=== PATIENT | male | born 1950 | race Caucasian/White ===

== ENCOUNTER 2017-03-15 13:27 | Emergency (ER) | payer BC ==
--- NOTE | 2017-03-15 14:02 | UC ---
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 TRIED TO FIND HIS PULSE BUT COULD NOT FIND IT. CAME HERE FOR EVAL. DENIES CP, SOB, NAUSEA, SWEATS. HAS OCCASIONAL PALPITATIONS. DENIES ANY PREVIOUS CARDIAC HISTORY. RAKED LEAVES THIS MORNING. - History of Current Complaint Chief Complaint: UCCardiac Stated Complaint: HEART ISSUE Time Seen by Provider: 03/15/17 13:46 Hx Obtained From: Patient, Family/Sexual Assault Social Worker - Onset/Duration: Sudden Onset, Lasting Hours Timing: Constant Onset Severity: Moderate Current Severity: Moderate Pain Intensity: 0 Associated Signs & Symptoms: Positive: Palpitations. Negative: Chest Pain, Dizziness, Diaphoresis, Headache, Nausea, Recent Medication Changes, Syncope, SOB - Allergy/Home Medications Allergies/Adverse Reactions: Allergies Allergy/AdvReac Type Severity Reaction Status Date / Time No Known Allergies Allergy Verified 03/15/17 13:34 Home Medications: Home Medications Atorvastatin* [Lipitor 10 MG*] 03/15/17 [History] Bupropion XL* [Wellbutrin XL *] 300 mg PO DAILY 03/15/17 [History Confirmed 08/25] Clonazepam [Klonopin] 1 mg PO 03/15/17 [History] Dexmethylphenidate HCl [Focalin] 2.5 mg PO 03/15/17 [History] Lisinopril [Lisinopril 2.5 MG-] 2.5 mg PO DAILY 03/15/17 [History Confirmed 08/25] NK [No Home Medications Reported] 03/15/17 [History Confirmed 03/15/17] PMH/Surg Hx/FS Hx/Imm Hx Endocrine History: Diabetes, Dyslipidemia Cardiovascular History: Hypertension Psychological History: Anxiety, Depression - Surgical History Surgical History: None - Family History Known Family History: Positive: Cardiac Disease, Hypertension - Social History Alcohol Use: Weekly Substance Use Type: None Smoking Status (MU): Never Smoked Tobacco Review of Systems Constitutional: Negative Respiratory: Negative Cardiovascular: Palpitations Gastrointestinal: Negative Psychological: Anxious All Other Systems Reviewed And Are Negative: Yes Physical Exam Triage Information Reviewed: Yes Appearance: Well-Appearing, No Pain Distress, Well-Nourished Vital Signs: Initial Vital Signs Temp 97.4 F 03/15/17 13:31 Pulse 92 03/15/17 13:31 Resp 18 03/15/17 13:31 Pulse Ox 100 03/15/17 13:31 Vital Signs Reviewed: Yes Eyes: Positive: Conjunctiva Clear ENT: Positive: Hearing grossly normal Neck: Positive: Supple Respiratory Exam: Normal Cardiovascular: Positive: Tachycardia - IRREGULARLY IRREGULAR Abdomen Description: Positive: Soft Musculoskeletal: Positive: No Edema Neurological: Positive: Alert Psychological: Positive: Normal Response To Family, Age Appropriate Behavior Skin: Negative: rashes Diagnostics - EKG Cardiac Rate: Tachycardia Cardiac Rhythm: AFib: New - 151 BPM Course/Dx - Differential Dx - Multi-Symptom Provider Diagnoses: NEW ONSET AFIB - Physician Notifications Discussed Patient Care With: Harpreet Graham - TO [facility] ED BY AMBULANCE Time Discussed With Above Provider: 13:55 Instructed by Provider To: MD Will See In ED Discharge - Discharge Plan Condition: Stable Disposition: [facility]ANS [facility] OF CARE FAC Patient Education Materials: A-fib (Atrial Fibrillation) (ED) Referrals: Abhi Berry MD [Primary Care Provider] - If Needed
[2017-03-15 14:04] VITALS: BP 132/80
== END 2017-03-15 14:14 | disposition short-term general hospital (02) ==
LOC: UCEAST 13:27
DX: I48.91 Unspecified atrial fibrillation (principal); E11.9 Type 2 diabetes mellitus without complications; E78.5 Hyperlipidemia, unspecified; F41.9 Anxiety disorder, unspecified; F32.9 Major depressive disorder, single episode, unspecified
CPT/HCPCS: 93005; 99213; G0463

== ENCOUNTER 2017-03-15 14:30 | Inpatient (IN) | payer BC ==
[2017-03-15] MEDS ORDERED: Aspirin Low Dose CHEW TAB* 81 MG PO ONE (14:31)
[2017-03-15] MEDS ORDERED: Diltiazem IV* 5 MG/ML 5 ML VIAL (for loading dose/IV Push) (25 MG) IV SLOW PU ONE ×2 (14:34→15:06)
[2017-03-15 14:45] LABS: Hematocrit 43 % (42-52); Hemoglobin 14.8 g/dl (14.0-18.0); Mean Corpuscular HGB Conc 35 g/dl (31-36); Mean Corpuscular Hemoglobin 31 pg (27-31); Mean Corpuscular Volume 88 fL (80-94); Mean Platelet Volume 7 um3 (7.4-10.4); Red Blood Count 4.87 10^6/ul (4.0-5.4); Red Cell Distribution Width 14 % (10.5-15); White Blood Count 5.6 10^3/ul (3.5-10.8)
[2017-03-15 15:00] LABS: Albumin 4.4 g/dL (3.2-5.2); BUN/Creatinine Ratio 13.9 (8-20); Calcium 9.6 mg/dL (8.6-10.3); EGFR African American 82.1 (>60); EGFR Non-African American 63.8 (>60); Globulin 2.7 g/dL (2-4); Potassium 4.8 mmol/L (3.5-5.0); Total Bilirubin 0.3 mg/dL (0.2-1.0); Total Protein 7.1 g/dL (6.4-8.9)
[2017-03-15 15:02] LABS: Troponin I 0.01 ng/mL (<0.04)
--- NOTE | 2017-03-15 15:17 | RAD ---
HISTORY: Tachycardia COMPARISONS: None VIEWS: 1: frontal portable view of the chest at 2:50 PM FINDINGS: LINES AND TUBES: None. CARDIOMEDIASTINAL SILHOUETTE: The aorta is tortuous. The cardiomediastinal silhouette is otherwise normal for portable technique. PLEURA: The costophrenic angles are sharp. No pleural abnormalities are noted. LUNG PARENCHYMA: The lungs are clear. ABDOMEN: The upper abdomen is clear. There is no subphrenic gas. BONES AND SOFT TISSUES: No bone or soft tissue abnormalities are noted. IMPRESSION: NO ACTIVE CARDIOPULMONARY DISEASE.
[2017-03-15 15:18] LABS: TSH (Thyroid Stimulating Horm) 1.3 mcIU/mL (0.34-5.60)
[2017-03-15 15:20] LABS: Free T4 0.81 ng/dL (0.61-1.12)
[2017-03-15] MEDS ORDERED: Heparin DRIP 25,000 UNITS(*) 25,000 UNITS/500 ML BAG IV SCH (18:45)
[2017-03-15] MEDS ORDERED: Heparin VIAL(*) 5000 UNITS/ML VIAL (FIVE THOUSAND) IV SCH (19:00)
[2017-03-15] MEDS: Diltiazem DRIP* 100 MG/100 ML ADDV.BAG IVPB SCH (20:58)
[2017-03-15] MEDS: clonazePAM TAB(*) 0.5 MG PO SCH (21:02)
[2017-03-15 21:04] LABS: Hematocrit 42 % (42-52); Hemoglobin 14.7 g/dl (14.0-18.0); Mean Corpuscular HGB Conc 35 g/dl (31-36); Mean Corpuscular Hemoglobin 31 pg (27-31); Mean Corpuscular Volume 88 fL (80-94); Mean Platelet Volume 7 um3 (7.4-10.4); Red Cell Distribution Width 14 % (10.5-15); White Blood Count 6.4 10^3/ul (3.5-10.8)
[2017-03-15 21:19] LABS: Troponin I 0.01 ng/mL (<0.04)
[2017-03-15] MEDS: DEXMETHYLPHENIDATE HCL 10 MG PO SCH (21:52)
--- NOTE | 2017-03-15 22:50 | ED ---
Jak Cook Nilda scribed for Harpreet Graham MD on 03/15/17 at 1531 . HPI Cardiac - HPI Summary HPI Summary: This patient is a 67 year old M BIBA to [facility] accompanied by EMS with a chief complaint of sudden onset constant fluttering in chest that began at noon. Pt was sitting at his office at time of onset. Pt visited [facility] and was found to have rapid a-fib, and was sent to ED. Per EMS, fluttering subsided upon arrival to picker / packer pt from [facility], though elevated heart rate is still present. The patient rates the pain 1/10 in severity. Symptoms aggravated and alleviated by nothing. Patient reports tightness across chest without radiation. 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 Pt denies previous cardiac history. - History of Current Complaint Chief Complaint: EDDysrhythmPalp Stated Complaint: NEW ONSET OF AFIB Time Seen by Provider: 03/15/17 14:31 Hx Obtained From: Patient Onset/Duration: Started Hours Ago, Still Present Timing: Constant, Lasting Hours Current Severity: Mild Pain Intensity: 1 Pain Scale Used: 0-10 Numeric Chest Pain Location: Diffuse Chest Pain Radiates: No Character: Tightness Aggravating Factor(s): Nothing Alleviating Factor(s): Nothing Associated Signs and Symptoms: Positive: Other: - chest tightness, a-fib, "fluttering in chest" - Allergy/Home Medications Allergies/Adverse Reactions: Allergies Allergy/AdvReac Type Severity Reaction Status Date / Time No Known Allergies Allergy Verified 03/15/17 13:34 Home Medications: Home Medications Atorvastatin* [Lipitor*] 40 mg PO DAILY 03/15/17 [History Confirmed 03/15/17] Desvenlafaxine Succinate [Desvenlafaxine ER] 50 mg PO DAILY 03/15/17 [History Confirmed 03/15/17] Dexmethylphenidate HCl [Focalin] 10 mg PO BID 03/15/17 [History Confirmed ] Lisinopril TAB* [Prinivil TAB*] 5 mg PO DAILY 03/15/17 [History Confirmed ] buPROPion SR TAB* [Wellbutrin SR TAB*] 150 mg PO DAILY 03/15/17 [History Confirmed 03/15/17] clonazePAM TAB(*) [KlonoPIN TAB(*)] 0.5 mg PO BID 03/15/17 [History Confirmed ] PMH/Surg Hx/FS Hx/Imm Hx Endocrine/Hematology History: Reports: Hx Diabetes - pre diabetic Cardiovascular History: Reports: Hx Hypertension Infectious Disease History: Unable to Obtain/Confirm Infectious Disease History: Denies: Traveled Outside the [place] in Last 30 Days - Family History Known Family History: Positive: Cardiac Disease, Hypertension - Social History Occupation: Employed Full-time Alcohol Use: Weekly Substance Use Type: Reports: None Smoking Status (MU): Never Smoked Tobacco Review of Systems Negative: Fever, Chills Negative: Erythema Negative: Sore Throat Positive: Chest Pain, Other - fluttering in chest, A-fib Negative: Shortness Of Breath, Cough Negative: Abdominal Pain, Vomiting, Nausea Negative: dysuria, hematuria Negative: Myalgia, Edema Negative: Rash Neurological: Other - negative dizziness All Other Systems Reviewed And Are Negative: Yes Physical Exam - Summary Physical Exam Summary: Constitutional: Well-developed, Well-nourished, Alert. (-) Distressed Skin: Warm, Dry HENT: Normocephalic; Atraumatic Eyes: Conjunctiva normal Neck: Musculoskeletal ROM normal neck. (-) JVD, (-) Stridor, (-) Tracheal deviation Cardio: Rapid irregular pulse; Intact distal pulses; The pedal pulses are 2+ and symmetric. Radial pulses are 2+ and symmetric. (-) Murmur Pulmonary/Chest wall: Effort normal. (-) Respiratory distress, (-) Wheezes, (-) Rales Abd: Soft, (-) Tenderness, (-) Distension, (-) Guarding, (-) Rebound Musculoskeletal: (-) Edema Lymph: (-) Cervical adenopathy Neuro: Alert, Oriented x3 Psych: Mood and affect Normal Triage Information Reviewed: Yes Vital Signs On Initial Exam: Initial Vitals Temp Pulse Resp BP Pulse Ox 98.4 F 165 18 125/91 99 03/15/17 14:37 03/15/17 14:37 03/15/17 14:37 03/15/17 14:37 03/15/17 14:37 Vital Signs Reviewed: Yes Diagnostics - Vital Signs Vital Signs Temp Pulse Resp BP Pulse Ox 03/15/17 14:37 98.4 F 165 18 125/91 99 - Laboratory Lab Results: Lab Results 03/15/17 03/15/17 03/15/17 Range/Units 14:10 14:10 14:10 WBC 5.6 (3.5-10.8) 10^3/ul RBC 4.87 (4.0-5.4) 10^6/ul Hgb 14.8 (14.0-18.0) g/dl Hct 43 (42-52) % MCV 88 (80-94) fL MCH 31 (27-31) pg MCHC 35 (31-36) g/dl RDW 14 (10.5-15) % Plt Count 227 (150-450) 10^3/ul MPV 7 L (7.4-10.4) um3 Neut % (Auto) 54.3 (38-83) % Lymph % (Auto) 33.5 (25-47) % [place] % (Auto) 10.7 H (1-9) % Eos % (Auto) 0.6 (0-6) % Baso % (Auto) 0.9 (0-2) % Absolute Neuts (auto) 3.1 (1.5-7.7) 10^3/ul Absolute Lymphs (auto) 1.9 (1.0-4.8) 10^3/ul Absolute Monos (auto) 0.6 (0-0.8) 10^3/ul Absolute Eos (auto) 0 (0-0.6) 10^3/ul Absolute Basos (auto) 0.1 (0-0.2) 10^3/ul Absolute Nucleated RBC 0.01 10^3/ul Nucleated RBC % 0.2 Sodium 137 (133-145) mmol/L Potassium 4.8 (3.5-5.0) mmol/L Chloride 104 (101-111) mmol/L Carbon Dioxide 24 (22-32) mmol/L Anion Gap 9 (2-11) mmol/L BUN 16 (6-24) mg/dL Creatinine 1.15 (0.67-1.17) mg/dL Est GFR ( Amer) 82.1 (>60) Est GFR (Non-Af Amer) 63.8 (>60) BUN/Creatinine Ratio 13.9 (8-20) Glucose 120 H (70-100) mg/dL Lactic Acid 1.2 (0.5-2.0) mmol/L Calcium 9.6 (8.6-10.3) mg/dL Total Bilirubin 0.30 (0.2-1.0) mg/dL AST 24 (13-39) U/L ALT 27 (7-52) U/L Alkaline Phosphatase 100 (34-104) U/L Troponin I 0.01 (<0.04) ng/mL Total Protein 7.1 (6.4-8.9) g/dL Albumin 4.4 (3.2-5.2) g/dL Globulin 2.7 (2-4) g/dL Albumin/Globulin Ratio 1.6 (1-3) TSH 1.30 (0.34-5.60) mcIU/mL Free T4 Pending Result Diagrams: 03/15/17 20:50 03/15/17 14:10 Lab Statement: Any lab studies that have been ordered have been reviewed, and results considered in the medical decision making process. - Radiology CXR Radiology Interpretation Completed By: Radiologist - CXR, per radiologist, reveals no active cardiopulmonary disease. ED physician has reviewed this radiology report and agrees. - EKG 1433 EKG Rhythm: Atrial Fibrillation - 153 bpm EKG Interpretation: RVR, no STEMI Disposition - Course Assessment/Plan: This patient is a 67 year old M BIBA to [facility] accompanied by EMS with a chief complaint of sudden onset constant fluttering in chest that began at noon. Pt was sitting at his office at time of onset. Pt visited [facility] and was found to have rapid a-fib, and was sent to ED. Per EMS, symptoms subsided upon arrival to picker / packer pt from [facility], though elevated heart rate is still present. The patient rates the pain 1/10 in severity. Symptoms aggravated and alleviated by nothing. Patient reports tightness across chest without radiation. 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 Pt denies previous cardiac history. Pending labs, EKG, and CXR. An EKG reveals 153 bpm, A-fib, RVR, no STEMI. CXR , per radiologist, reveals no active cardiopulmonary disease. ED physician has reviewed this radiology report and agrees. [1640] Dr. Kilgore (Kitchen Worker) recommends hospital admission and agrees to cardioversion procedure in the morning. [1711] Dr. Palomo (infectious disease) has a full office and requests hospitalists to do admission. [1716] Dr. Lao (Hospitalist) accepts pt for admission. 60 mins CCT. In the ED course, the patient was given Diltiazem and Aspirin. Pt is stable and will be admitted with a diagnosis of rapid atrial fibrillation. Pt understands and is agreeable with this plan. - Diagnoses Provider Diagnoses: Rapid atrial fibrillation - Physician Notifications Discussed Care Of Patient With: Armando Kilgore - Cardiology Time Discussed With Above Provider: 16:40 Instructed by Provider To: Other - recommend hospital admission and agrees to cardioversion procedure in the morning. - Critical Care Time Critical Care Time: 30-74 min - 60 mins Discharge - Discharge Plan Condition: Stable Disposition: ADMITTED TO [facility] The documentation as recorded by the Jak herbert Nilda accurately reflects the service I personally performed and the decisions made by , Harpreet Graham MD.
--- NOTE | 2017-03-16 02:29 | HP ---
CC: Dr. Abhi Berry; Dr. Kumar * HISTORY AND PHYSICAL: DATE OF ADMISSION: 03/15/17 CHIEF COMPLAINT: "Fluttering in my neck." HISTORY OF PRESENT ILLNESS: The patient is a 67-year-old gentleman in his usual state of health until about 1 p.m. today when he started feeling a fluttering in his neck. He thought it might be due to the humidity in the air. He could not feel his pulse though, which worried him. He had no other symptoms. He had no chest pain and no shortness of breath. He was not lightheaded, he had no nausea or vomiting. He called his and asked her to bring him to urgent care where he was found to be in atrial fibrillation with a rapid ventricular response. He does note in the year 1999, he felt a throbbing in his throat after he exercised and he was evaluated by a line decorator, who said he had an extra heart beat. He said he was told he was perfectly normal, but he also wrote down that he was in atrial fibrillation. He is not sure how this came about. PAST MEDICAL HISTORY: He has a past medical history significant for a , for which he needs to take antibiotics prior to dental work. He is prediabetic , has depression, hypertension, hyperlipidemia. SOCIAL HISTORY: He does not smoke. He quit in 1982. Drinks wine daily. 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 He is with an 8-year-old from this marriage and a 34 and 32-year-old from prior relationship. His , Karmen, is his healthcare proxy. FAMILY HISTORY: Mom is alive at 93, has arrhythmia and prediabetic. Father at 80, had pancreatic cancer and an IL at 60. CURRENT MEDICATIONS: 1. Clonazepam 0.5 mg twice daily. 2. Focalin 10 mg twice daily. 3. Lisinopril 5 mg daily. 4. Wellbutrin SR 150 mg daily. 5. Desvenlafaxine ER 50 mg daily. 6. Atorvastatin 40 mg daily. REVIEW OF SYSTEMS: A 14-point review of systems was completed with the patient. All pertinent positives and negatives are in the history of present illness, otherwise it is negative. PHYSICAL EXAMINATION GENERAL: A pleasant gentleman, lying in bed, in no acute distress. VITAL SIGNS: Blood pressure 116/70, pulse ox 95%, respiratory rate 17 breaths per minute, heart rate 91 beats per minute, temperature is 98.4 degrees. HEENT: Normocephalic and atraumatic. Pupils are equal, round, and reactive to light. Moist mucous membranes. NECK: Supple. No JVD, bruits, palpable thyroid, or lymphadenopathy. CHEST: Clear to auscultation and percussion bilaterally. CARDIOVASCULAR: S1 and S2 appreciated. Irregularly irregular rhythm with an increased rate. ABDOMEN: Positive bowel sounds in all 4 quadrants. Soft, nontender, and nondistended. EXTREMITIES: No cyanosis, clubbing, or edema. +2 peripheral pulses bilaterally. NEUROLOGIC: Alert and oriented x3. Moves all extremities. SKIN: No rashes or abnormalities. DIAGNOSTIC STUDIES/LAB DATA: White count 5.6, hemoglobin 14.8, hematocrit 43, platelets 227. Sodium is 137, potassium 4.8, chloride 104, CO2 24, BUN 16, creatinine 1.15, glucose 120. Chest x-ray was interpreted by Radiology as no active cardiopulmonary disease. EKG shows atrial fibrillation with a rapid ventricular response. ASSESSMENT AND PLAN: 1. Atrial fibrillation with rapid ventricular response. Place the patient on Cardizem drip, place the patient on heparin drip. NPO after midnight. Discussed with Cardiology. Since he was symptomatic, he will likely go through [facility] cardioversion in the morning. 2. Depression. Stable. Continue current medications, we will hold p.o. medications in the a.m. 3. Hypertension. Blood pressure diastolic is little too high, but for now continue the current regimen and adjust medications accordingly. 4. Hyperlipidemia. Stable. Continue statin. 5. DVT prophylaxis: He is on a heparin drip. 6. The patient is a full code. TIME SPENT: Over 75 minutes was spent on this H and P, more than 40 minutes of which was spent in direct [id number] contact with the patient in evaluation, physical exam, counseling, and coordination of care. [id number]/[facility] #: [id number] ISIAH
[2017-03-16] MEDS: Diltiazem DRIP* 100 MG/100 ML ADDV.BAG IVPB SCH (07:46)
--- NOTE | 2017-03-16 08:46 | PN ---
Subjective - Subjective Reason for Note: Progress Note History: I have obtained his history from the patient and also from Dr. Vinson's admitting H and P. He usually drinks a couple of glasses of wine per night. He has also been under stress recently. He spontaneously went into rapid atrial fibrillation and has remained in that rhythm since, despite IV diltiazem. Risk factors: No history of CAD, rheumatic fever, hyperthyroidism, hypokalemia. He has T2D - well controlled (A1c 5.4%). Outpatient meds: atorvastatin 40 mg tablet TAKE 1 TABLET BY MOUTH AT BEDTIME buPROPion HCl SR 150 mg tablet,12 hr sustained-release TAKE ONE TABLET BY MOUTH TWICE A DAY clonazePAM 0.5 mg tablet 1 pill daily MDD 1 desvenlafaxine succinate ER 50 mg tablet,extended release 24 hr 1 pill daily dexmethylphenidate 10 mg tablet dexmethylphenidate ER 10 mg capsule,extended release [id number] 1 pill twice daily ibuprofen 800 mg tablet lisinopril 5 mg tablet TAKE ONE TABLET BY MOUTH ONCE DAILY metaxalone 800 mg tablet as needed tadalafil 5 mg tablet as needed Some medications listed in Document: #[id number] could not be added to this Active Problems: Active Problems Atrial fibrillation (Acute) I48.91 ADHD (Chronic) Anxiety (Chronic) F41.9 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) E11.9 Essential hypertension (Chronic) I10 Hypercholesteremia (Chronic) E78.00 Current Medications: Current Medications Atorvastatin Calcium (Lipitor*) 40 mg PO DAILY GISELA Bupropion HCl (Wellbutrin Sr Tab*) 150 mg PO DAILY GISELA Clonazepam (Klonopin Tab(*)) 0.5 mg PO BID GISELA Last Admin: 03/15/17 21:02 Dose: 0.5 mg Desvenlafaxine Succinate (Pristiq (Nf)) 50 mg PO DAILY GISELA Heparin Sodium (Porcine) (Heparin Vial(*)) 0 units IV .PER PROTOCOL GISELA PRN Reason: Protocol Last Admin: 03/16/17 06:37 Dose: 5,000 units Heparin Sodium/Dextrose (Heparin Drip 25,000 Units(*)) 25,000 units in 500 mls @ 0 mls/hr IV .NO INITIAL BOLUS GISELA; As Directed PRN Reason: Protocol Last Admin: 03/15/17 19:05 Dose: 26 mls/hr Diltiazem HCl (Cardizem Iv Advan*) 100 mg in 100 mls @ 10 mls/hr IVPB .PER PARAMETERS [facility] PRN Reason: 10 MG/HR Last Admin: 03/16/17 07:46 Dose: 10 mls/hr Lisinopril (Prinivil Tab*) 5 mg PO DAILY [facility] Non-Formulary Medication (Dexmethylphenidate Hcl [Focalin]) 10 mg PO BID [facility] Last Admin: 03/15/17 21:52 Dose: Not Given - Review of Systems Constitutional Symptoms: No: Fatigue, Fever, Night Sweats Pulmonary: Negative: Respiratory Distress, Shortness of Breath Cardiology: Positive: Palpitations Negative: Chest Pain, Swelling of Ankles Gastroenterology: Negative: Abdominal Pain, Nausea, Vomiting, Change in Bowel Habits Genital - Urinary: Negative: Dysuria Home Medications: Home Medications Medication Instructions Recorded Confirmed Type Atorvastatin* [Lipitor*] 40 mg PO DAILY 03/15/17 03/15/17 History Desvenlafaxine Succinate 50 mg PO DAILY 03/15/17 03/15/17 History [Desvenlafaxine ER] Dexmethylphenidate HCl [Focalin] 10 mg PO BID 03/15/17 03/15/17 History Lisinopril TAB* [Prinivil TAB*] 5 mg PO DAILY 03/15/17 03/15/17 History buPROPion SR TAB* [Wellbutrin SR 150 mg PO DAILY 03/15/17 03/15/17 History TAB*] clonazePAM TAB(*) [KlonoPIN TAB(*)] 0.5 mg PO BID 03/15/17 03/15/17 History Allergies: Allergies Allergy/AdvReac Type Severity Reaction Status Date / Time No Known Allergies Allergy Verified 03/15/17 13:34 Objective - Vital Signs Vital Signs: Vital Signs 03/15/17 03/15/17 03/15/17 19:00 19:30 19:58 Temperature 97.6 F Pulse Rate 60 113 76 Respiratory 15 12 12 Rate Blood Pressure 128/86 110/84 (mmHg) O2 Sat by Pulse 96 97 93 Oximetry 03/15/17 03/15/17 03/15/17 20:00 20:30 21:00 Temperature 97.6 F Pulse Rate 98 83 91 Respiratory 14 17 13 Rate Blood Pressure 126/86 138/125 107/83 (mmHg) O2 Sat by Pulse 94 97 98 Oximetry 03/15/17 03/15/17 03/15/17 21:28 21:29 21:31 Temperature Pulse Rate 90 Respiratory 14 14 16 Rate Blood Pressure 111/79 (mmHg) O2 Sat by Pulse 99 Oximetry 03/15/17 03/15/17 03/15/17 22:00 22:30 22:57 Temperature Pulse Rate 85 88 Respiratory 34 20 14 Rate Blood Pressure 140/90 136/85 (mmHg) O2 Sat by Pulse 96 97 Oximetry 03/15/17 03/15/17 03/15/17 23:00 23:30 23:38 Temperature 98.0 F Pulse Rate 74 86 Respiratory 11 32 Rate Blood Pressure 129/87 127/87 (mmHg) O2 Sat by Pulse 96 97 Oximetry 03/16/17 03/16/17 03/16/17 00:00 00:06 00:30 Temperature Pulse Rate 81 93 74 Respiratory 21 17 19 Rate Blood Pressure 119/88 114/77 (mmHg) O2 Sat by Pulse 97 97 97 Oximetry 03/16/17 03/16/17 03/16/17 01:00 01:03 01:30 Temperature Pulse Rate 63 89 Respiratory 19 15 Rate Blood Pressure 112/75 110/60 114/81 (mmHg) O2 Sat by Pulse 97 95 Oximetry 03/16/17 03/16/17 03/16/17 01:44 01:46 01:51 Temperature Pulse Rate 72 74 Respiratory 13 20 20 Rate Blood Pressure (mmHg) O2 Sat by Pulse 99 99 Oximetry 03/16/17 03/16/17 03/16/17 02:00 02:30 03:00 Temperature Pulse Rate 69 73 75 Respiratory 6 16 15 Rate Blood Pressure 112/72 115/77 106/76 (mmHg) O2 Sat by Pulse 98 93 94 Oximetry 03/16/17 03/16/17 03/16/17 03:11 03:12 03:30 Temperature Pulse Rate 72 73 Respiratory 15 12 15 Rate Blood Pressure 110/77 (mmHg) O2 Sat by Pulse 93 96 Oximetry 03/16/17 03/16/17 03/16/17 03:53 04:00 04:30 Temperature 98.2 F Pulse Rate 72 80 Respiratory 14 16 Rate Blood Pressure 111/71 99/76 (mmHg) O2 Sat by Pulse 96 97 Oximetry 03/16/17 03/16/17 03/16/17 05:00 05:30 05:52 Temperature Pulse Rate 68 78 81 Respiratory 21 15 13 Rate Blood Pressure 111/77 109/76 (mmHg) O2 Sat by Pulse 96 96 98 Oximetry 03/16/17 03/16/17 03/16/17 05:53 06:01 06:30 Temperature Pulse Rate 69 75 Respiratory 20 20 10 Rate Blood Pressure 102/73 (mmHg) O2 Sat by Pulse 96 97 Oximetry 03/16/17 03/16/17 03/16/17 06:53 07:00 07:01 Temperature Pulse Rate 72 80 76 Respiratory 15 14 16 Rate Blood Pressure 109/82 (mmHg) O2 Sat by Pulse 98 97 97 Oximetry 03/16/17 03/16/17 03/16/17 07:30 08:00 08:01 Temperature 97.8 F Pulse Rate 80 72 78 Respiratory 15 14 14 Rate Blood Pressure 130/80 107/76 (mmHg) O2 Sat by Pulse 98 97 97 Oximetry 03/16/17 08:13 Temperature Pulse Rate 89 Respiratory 15 Rate Blood Pressure (mmHg) O2 Sat by Pulse 98 Oximetry - Intake and Output Intake and Output: Intake & Output 03/13/17 03/14/17 03/15/17 03/16/17 11:59 11:59 11:59 11:59 Intake Total 485 Output Total 950 Balance -465 Weight 241 lb 10.026 oz Intake: Medicated IV 81 GEN - Diltiazem/Cardizem 81 Heparin 44 Oral 360 Output: Urine 950 ADLs: Meal Record Start: 03/15/17 19: 30 Freq: 09,13,18 Status: Active Protocol: Created 03/15/17 19:30 System (Rec: 03/15/17 19:30 System [id number]) Intake and Output Start: 03/15/17 14: 43 Freq: Status: Active Protocol: Created 03/15/17 14:43 System (Rec: 03/15/17 14:43 System [id number]) Intake and Output Start: 03/15/17 19: 30 Freq: 06,14,22 Status: Active Protocol: Created 03/15/17 19:30 System (Rec: 03/15/17 19:30 System [id number]) Document 03/15/17 21:30 [id number] (Rec: 03/15/17 21:30 [id number]) Document 03/16/17 05:55 [id number] (Rec: 03/16/17 05:55 [id number] [id number]) Document 03/16/17 08:20 (Rec: 03/16/17 08:20 [id number]) - Physical Exam General: No Cyanosis, No Anemia, No Jaundice, No Clubbing Skin: Normal: Rash Endocrine: Yes Central Obesity, No Acromegaly, No Flushing, No Acanthosis nigricans, No Violaceious striae, No Raj Syndrome, No Buccal pigmenatation, No Boswell Crease Pigmentation Lungs and Chest: Yes: Chest Expansion Full, Chest Expansion Symetrica, Percussion Note Resonant, Vessicular Breath Sounds. No: Crackles, Wheezes Heart Rate and Rhythm: Irregular Additional Cardiovascular: Yes: Normal Heart Sounds. No: Heart Murmur, Pedal Edema Abdominal Exam: Yes: Soft, Bowel Sounds Present. No: Distention, Abdominal Mass , Abdominal Tenderness Results - Results Lab Results: Laboratory Results - last 24 hr 03/15/17 03/15/17 03/15/17 20:50 20:50 20:50 WBC 6.4 RBC 4.80 Hgb 14.7 Hct 42 MCV 88 MCH 31 MCHC 35 RDW 14 Plt Count 227 MPV 7 L Neut % (Auto) 61.8 Lymph % (Auto) 27.8 Stafford % (Auto) 9.5 H Eos % (Auto) 0.6 Baso % (Auto) 0.3 Absolute Neuts (auto) 4.0 Absolute Lymphs (auto) 1.8 Absolute Monos (auto) 0.6 Absolute Eos (auto) 0 Absolute Basos (auto) 0 Absolute Nucleated RBC 0.01 Nucleated RBC % 0.1 APTT 41.4 H BUN 14 Troponin I 0.01 03/16/17 05:10 WBC RBC Hgb Hct MCV MCH MCHC RDW Plt Count MPV Neut % (Auto) Lymph % (Auto) Stafford % (Auto) Eos % (Auto) Baso % (Auto) Absolute Neuts (auto) Absolute Lymphs (auto) Absolute Monos (auto) Absolute Eos (auto) Absolute Basos (auto) Absolute Nucleated RBC Nucleated RBC % APTT 47.6 H BUN Troponin I Radiology Results: Patient Name: OLGA VALENTINO Medical Record#: [id number] Ordering Physician: Harpreet Graham MD Acct.#: [id number] : 1950 Age: 67 Sex: M Location: EMERGENCY DEPARTMENT Exam Date: 03/15/17 143 ADM Status: PRE ER Order Information: CHEST AP PORTABLE Accession Number: [id number] CPT: 52798 HISTORY: Tachycardia COMPARISONS: None VIEWS: 1: frontal portable view of the chest at 2:50 PM FINDINGS: LINES AND TUBES: None. CARDIOMEDIASTINAL SILHOUETTE: The aorta is tortuous. The cardiomediastinal silhouette is otherwise normal for portable technique. PLEURA: The costophrenic angles are sharp. No pleural abnormalities are noted. LUNG PARENCHYMA: The lungs are clear. ABDOMEN: The upper abdomen is clear. There is no subphrenic gas. BONES AND SOFT TISSUES: No bone or soft tissue abnormalities are noted. IMPRESSION: NO ACTIVE CARDIOPULMONARY DISEASE. <Electronically signed by Sean Sanabria MD in OV> 03/15/17 151 Dictated By: Sean Sanabria MD Dictated Date/Time: 03/15/171513 Transcribed Date/Time: 03/15/17 151 Copy to: CC:Abhi Berry MD; Harpreet Graham MD Imaging - [facility] [address] [place] [address] ph ([phone]) ph ([phone]) ph [phone]) EKG Report: RAte 153 Atrial fib. QTc 5032 QRS 106 axis 5 Assessment - Problem List Assessment: Patient Problems Atrial fibrillation (Acute) ADHD (Chronic) Anxiety (Chronic) 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) Essential hypertension (Chronic) Hypercholesteremia (Chronic) Plan: Atrial fibrillation (Acute) This is the first episode of atrial fibrillation for this patient. He did not spontaneously convert and responded to diltiazem for rate control. He is due for DC cardioversion today. His main risk factors are caffeine, daily alcohol and stress. I will speak with cardiology to decide upon whether he can be discharged after cardioversion on anticoagulation. The main question is whether cardiology will want a stress test to rule out occult ischemia prior to discharge. ADHD (Chronic) ongoing Anxiety (Chronic) This is chronic and he is under stress at present 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) tight control with diet/exercise Essential hypertension (Chronic) controlled - treated with lisinopril Hypercholesteremia (Chronic) ongoing - treated with atorvastatin I discussed his case in detail with the patient and his . I covered the following topics * The nature of atrial fibrillation * complications * Risk factors * Anticoagulation * DC conversion * Need for CAD risk stratification * Alcohol/caffeine/stress * possibility of paroxysmal atrial fibrillation - its management with medication /EPS * answered questions. I spoke with Dr. Kumar who is managing his case for cardiology - may require inpatient follow up for CAD risk stratification
[2017-03-16] MEDS ORDERED: Lisinopril TAB* 5 MG PO SCH ×2 (09:00→21:00)
[2017-03-16] MEDS ORDERED: Atorvastatin* 40 MG TAB PO SCH ×2 (09:00→21:00)
[2017-03-16] MEDS ORDERED: Flumazenil* 0.1 MG/ML 5 ML MDV ONE (09:30)
[2017-03-16] MEDS ORDERED: Naloxone* 0.4 MG/ML 1 ML VIAL ONE (09:30)
[2017-03-16] MEDS ORDERED: fentaNYL* 50 MCG/ML 2 ML VIAL (100 MCG VIAL) ONE ×2 (09:30→10:49)
[2017-03-16] MEDS ORDERED: Lidocaine 2% VISCOUS* 15 ML UDC ONE (09:30)
[2017-03-16] MEDS ORDERED: Midazolam* 1 MG/ML 10 ML VIAL (10 MG) ONE (09:31)
[2017-03-16] MEDS ORDERED: Atropine SYRINGE* 0.1 MG/ML 10 ML SYRINGE (1 MG) ONE (12:19)
--- NOTE | 2017-03-16 12:35 | CARD ---
CC: Abhi Berry MD; Ta Kumar MD; Dr. Vinson * DIRECT CURRENT CARDIOVERSION NOTE: DATE OF PROCEDURE: 03/16/17 - ROOM #ICU-05 PROCEDURE: Direct current cardioversion. HISTORY: The patient is a 67-year-old male patient who was hospitalized to the intensive care unit with rapid symptomatic atrial fibrillation. Transesophageal echocardiography was further requested, guided cardioversion if feasible. He was started on heparin IV for anticoagulation. PROCEDURE IN DETAIL: After informed written consent had been obtained and with continuous blood pressure, pulse oximetry and heart rate monitoring, a transesophageal echocardiography was further performed and documented. The patient had normal left ventricular systolic function. No evidence of clots or smoke in the left atrium or in the left atrial appendage. Please refer to full report as per transesophageal echocardiography. After the transesophageal echocardiography, direct cardioversion was further followed. Initially, the patient received a total dose of Versed 8 mg during the LACIE and 100 mcg fentanyl IV and 8 mg of Versed IV and additional 2 mg of Versed IV was used before the direct current cardioversion. Synchronized 150 joules were delivered once and successfully converted the patient to normal sinus rhythm. There were no complications and the patient tolerated the procedure very well. An EKG was obtained and confirmed the patient to be in normal sinus rhythm with a heart rate of 70 beats per minute, blood pressure 120/70. CONCLUSION: Successful direct current cardioversion for atrial fibrillation. The patient in normal sinus rhythm. There were no complications. [id number]/CPS #: [id number] MTDD
--- NOTE | 2017-03-16 13:09 | CONS ---
CC: Dr. Abhi Berry; Dr. Kumar; Hospitalist service * CARDIOLOGY CONSULT: DATE OF CONSULT: 03/16/17 REASON FOR CONSULT: I was asked by Dr. Vinson from the hospitalist service to see this patient. HISTORY OF PRESENT ILLNESS: The patient is a 67-year-old male patient who follows with Dr. Abhi Berry as his primary care physician, with history of systemic arterial hypertension, diabetes mellitus type 2, hyperlipidemia, who presented to [facility] initially with tachycardia and a fluttering in his chest while he was at work, then transferred to [facility]. In the hospital here, he was found to be in atrial fibrillation. He was hospitalized to the intensive care unit and started on IV Cardizem drip. He remained in atrial fibrillation. He gives no symptoms of chest pain, no shortness of breath , no orthopnea, no PND. No dizziness, no syncope. No fever, no chills. No skin rash. No tremors. No hematochezia. No nausea, no vomiting, no abdominal pain. No syncope. No history of myocardial infarction. No history of coronary artery disease. No history of congestive heart failure. I was asked to see him from cardiology standpoint for further management for his atrial fibrillation, it was presumptive new onset, for LACIE-guided cardioversion if he remains in atrial fibrillation, which he is. PAST MEDICAL HISTORY: Includes history of systemic arterial hypertension, history of diabetes mellitus, hyperlipidemia, and depression. MEDICATIONS: His medications as an outpatient include: 1. Lipitor 40 mg daily. 2. Wellbutrin 150 mg daily. 3. Lisinopril 5 mg daily. 4. Clonazepam 0.5 mg twice daily. His medications as an inpatient include: 1. Lipitor 40 mg daily. 2. Wellbutrin 150 mg daily. 3. Cardizem IV 10 mL per hour. 4. Heparin adjusted to his PTT. 5. Lisinopril 5 mg daily. FAMILY HISTORY: There are some issues with family history of coronary artery disease, although details are not immediately available. SOCIAL HISTORY: No history of smoking. He drinks alcohol significantly, at least moderate according to him. He has no history of illicit drug use. He drinks caffeine also moderately. REVIEW OF SYSTEMS: Review of all other systems essentially is negative. PHYSICAL EXAMINATION: On exam, he is awake, alert, and oriented. He is not in acute distress. Vitals: Blood pressure 110/76, pulse 100, he is in atrial fibrillation. He is afebrile, respiratory rate is 15. Head and Neck Exam: Normocephalic, atraumatic head. Ears, nose, and throat essentially benign. Neck: Supple. JVP is not elevated. No carotid bruits. No masses in the neck is appreciated. Chest: Clear to auscultation. No rales, no wheezes, no added sounds appreciated. Heart: Irregularly irregular, S1 and S2. No added sounds. No gallops, no rubs. Abdomen: Benign, soft, positive bowel sounds. Extremities: No edema, no cyanosis, and no clubbing. Skin exam is normal. Psych: Normal affect and mood. ARRT TECHNOLOGIST: No focal deficits appreciated. DIAGNOSTIC STUDIES/LAB DATA: His labs are as follows: White blood cells 6.4, hemoglobin 14.7, hematocrit 42, platelets 227. Coagulation: PTT 47.6. Sodium 137, potassium 4.8, chloride 104, BUN 16, creatinine 1.15. LFTs are normal. Troponins 0.1 x3. TSH 1.30, T4 of 0.81. His EKG yesterday showed him to be in atrial fibrillation, heart rate is 153, nonspecific ST-T changes appreciated. IMPRESSION: The patient is a 67-year-old male patient with: 1. Presentation with symptomatic rapid atrial fibrillation, presumptive new onset. 2. Systemic arterial hypertension. 3. Hyperlipidemia. 4. Diabetes mellitus type 2, diet controlled. 5. Abnormal EKG as described. 6. History of at least moderate alcohol drinking and caffeinated drinks. 7. Family history of coronary artery disease, although not premature. PLAN: The plan at the present time is continue IV fluid and IV Cardizem. I agree with anticoagulation. He does have CHADS-VASc score system of at least 2 , at 67, hypertension, diabetes. We will proceed with a transesophageal echocardiography- guided cardioversion if that is feasible. I discussed this with the patient and his family. I answered all their concerns and questions up to their satisfaction. They are amendable to the plan. As I discussed him with Dr. Abhi Berry via phone today, he needs a risk stratification and we will schedule an inpatient nuclear Myoview stress test as well for him. [id number]/[facility] #: [id number] [facility] CENTERFlorence
--- NOTE | 2017-03-16 13:49 | TEE ---
Patient: OLGA VALENTINO [facility] Rec#: [id number] : 1950 Date: 03/16/2017 Age: 67y Height: 186.69 cm / 73.5 in Weight: 113.4 kg / 249.9 lbs Sex: M BSA: 2.38 Room#: [facility] Type: Inpatient Referring: Yg Vinson MD Performing: Ta Kumar MD Reading: Ta Kumar MD [employer] Internship: Nona Mallory RDCS Nurse: Issac Barrios RN CC: Abhi Berry MD Transesophageal Echocardiogram Indication: A-fib BP: 107/76 HR: 112 Rhythm: A-Fib Findings History: HTN, HLD, YAMILET, ETOH use, depression. Technical Comments: The study quality is good. Left Ventricle: The left ventricular chamber size is normal. Global left ventricular wall motion and contractility are within normal limits. There is normal left ventricular systolic function. The estimated ejection fraction is 55-60%. The assessment of diastolic function is non-diagnostic. Left Atrium: The left atrium is mildly dilated. The left atrial appendage velocity is normal. No thrombus is visualized within the left atrium. There is no thrombus visualized in the left atrial appendage. Right Ventricle: The right ventricular cavity size is normal. The right ventricular global systolic function is normal. Right Atrium: The right atrial cavity size is normal. Interatrial septum appears intact without evidence of shunting. The bubble study is negative. A patent foramen ovale is not demonstrated with color Doppler and agitated contrast. Aortic Valve: The aortic valve is trileaflet. The aortic valve leaflets are mildly thickened. There is a trace of aortic regurgitation. There is no evidence of aortic stenosis. Mitral Valve: The mitral valve leaflets are mildly thickened. There is mild mitral regurgitation. There are multiple regurgitant jets. There is no evidence of mitral stenosis. Tricuspid Valve: The tricuspid valve structure is not well visualized. There is trace tricuspid regurgitation. There is no tricuspid stenosis. Pulmonic Valve: The pulmonic valve appears normal. There is a trace pulmonic regurgitation. There is no pulmonic stenosis. Pericardium: There is no significant pericardial effusion. Aorta: There is mild dilatation of the ascending aorta. There is moderate dilatation of the aortic root. There is plaque visualized in the transverse aorta. There is mild atherosclerotic plaque in the visualized segments of the aorta. There is plaque visualized in the descending aorta. Pulmonary Artery: The main pulmonary artery appears normal. Venous: The bicaval view was obtained and appears normal. The pulmonary veins appear normal in size. 2 of 4 visualized. The flow pattern of the pulmonary veins appear normal. LACIE Procedures: All standard views were attempted within the limitations of patient tolerance and safety. History and physical as well as labs were reviewed. The patient was in a fasting state. Risks and benefits of the procedure, including alternatives, were discussed and written informed consent was obtained. The patient and/or their health care bottling equipment sales representative expressed understanding of the procedure, risks and benefits. Baseline and continuous monitoring of blood pressure, heart rate, pulse oximetry and heart rhythm was performed throughout the procedure. The appropriate time-out procedure was performed as per [facility] protocol. The patient was placed in the left lateral decubitus position. The patient's posterior pharynx was anesthetized with 20ml of 2% viscous lidocaine. The patient received IV Midazolam with a total dose of 8 mg. The patient received IV Fentanyl with a total dose of 100 mcg. An oral bite block was inserted for protection of oral dentition. The multiplane transesophageal echocardiogram probe was inserted through the posterior oropharynx and advanced into the esophagus without difficulty. Multiple 2D images were obtained of the heart and its related structures. Color flow Doppler was used for evaluation. Spectral Doppler was also used. The atrial septum was interrogated with color flow Doppler. At the conclusion of the procedure the probe was removed with continuous suction without complications. The patient tolerated the procedure with no apparent complications. Contrast: Normal saline was used as contrast for the bubble study. Image 31. Intravenous contrast was used to help determine presence of intracardiac shunting. Conclusions Global left ventricular wall motion and contractility are within normal limits. The estimated ejection fraction is 55-60%. The assessment of diastolic function is non-diagnostic. The left atrium is mildly dilated. No thrombus is visualized within the left atrium. There is no thrombus visualized in the left atrial appendage. Interatrial septum appears intact without evidence of shunting. There is a trace of aortic regurgitation. There is mild mitral regurgitation. There are multiple regurgitant jets. There is trace tricuspid regurgitation. There is a trace pulmonic regurgitation. There is plaque visualized in the transverse aorta. There is mild atherosclerotic plaque in the visualized segments of the aorta. Measurements Name Value Normal Range Aortic Annulus 2.2 cm (1.4 - 2.6) Ao root diameter (2D) 4.2 cm (2.1 - 3.5) Ascending Ao 3.5 cm (2.1 - 3.4) Name Value Normal Range MV E-wave Vmax 0.91 m/sec - MV deceleration time 156.7 msec -
[2017-03-16] MEDS: Diltiazem TAB* 30 MG PO SCH ×2 (14:11→20:53)
[2017-03-16] MEDS: DEXMETHYLPHENIDATE HCL 10 MG PO SCH ×2 (15:07→20:53)
[2017-03-16] MEDS: PTO:Desvenlafaxine (NF) 50 MG TAB PO SCH (15:07)
[2017-03-16] MEDS ORDERED: Rivaroxaban TAB(*) 20 MG TAB PO SCH (17:00)
[2017-03-16] MEDS: buPROPion SR TAB.SR* 150 MG PO SCH (17:31)
[2017-03-16] MEDS: clonazePAM TAB(*) 0.5 MG PO SCH ×2 (17:31→20:51)
[2017-03-16 18:45] LABS: Hematocrit 40 % (42-52); Hemoglobin 13.6 g/dl (14.0-18.0); Mean Corpuscular HGB Conc 34 g/dl (31-36); Mean Corpuscular Hemoglobin 30 pg (27-31); Mean Corpuscular Volume 89 fL (80-94); Mean Platelet Volume 7 um3 (7.4-10.4); Red Blood Count 4.51 10^6/ul (4.0-5.4); Red Cell Distribution Width 13 % (10.5-15); White Blood Count 5.5 10^3/ul (3.5-10.8)
[2017-03-17 06:40] LABS: Hematocrit 41 % (42-52); Hemoglobin 13.9 g/dl (14.0-18.0); Mean Corpuscular HGB Conc 34 g/dl (31-36); Mean Corpuscular Hemoglobin 30 pg (27-31); Mean Corpuscular Volume 89 fL (80-94); Mean Platelet Volume 7 um3 (7.4-10.4); Red Blood Count 4.62 10^6/ul (4.0-5.4); Red Cell Distribution Width 14 % (10.5-15); White Blood Count 4.9 10^3/ul (3.5-10.8)
[2017-03-17 06:58] LABS: BUN/Creatinine Ratio 14.6 (8-20); EGFR African American 93.2 (>60); EGFR Non-African American 72.5 (>60)
--- NOTE | 2017-03-17 07:27 | PN ---
Subjective - Subjective Reason for Note: Discharge Note History: Discharge summary: I reviewed Dr. Kumar's notes from yesterday. He was successfully cardioverted without incident. This morning he is feeling well and has remained in sinus rhythm. He is going to undergo risk stratification using a NM stress test today to rule out occult coronary artery disease. He has no chest pain, dyspnea, palpitations or edema. 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) E11.9 Essential hypertension (Chronic) I10 Hypercholesteremia (Chronic) E78.00 Current Medications: Current Medications Atorvastatin Calcium (Lipitor*) 40 mg PO 2100 [facility] Last Admin: 03/16/17 20:51 Dose: 40 mg Bupropion HCl (Wellbutrin Sr Tab*) 150 mg PO DAILY [facility] Last Admin: 03/16/17 17:31 Dose: Not Given Clonazepam (Klonopin Tab(*)) 0.5 mg PO BID [facility] Last Admin: 03/16/17 20:51 Dose: 0.5 mg Desvenlafaxine Succinate (Pristiq (Nf)) 50 mg PO DAILY [facility] Last Admin: 03/16/17 15:07 Dose: 50 mg Diltiazem HCl (Cardizem Tab*) 30 mg PO BID [facility] Last Admin: 03/16/17 20:53 Dose: 30 mg Lisinopril (Prinivil Tab*) 5 mg PO 2100 [facility] Last Admin: 03/16/17 20:53 Dose: 5 mg Non-Formulary Medication (Dexmethylphenidate Hcl [Focalin]) 10 mg PO BID [facility] Last Admin: 03/16/17 20:53 Dose: Not Given Rivaroxaban (Xarelto (*)) 20 mg PO 1700 [facility] Last Admin: 03/16/17 18:29 Dose: 20 mg Home Medications: Home Medications Medication Instructions Recorded Confirmed Type Atorvastatin* [Lipitor*] 40 mg PO DAILY 03/15/17 03/15/17 History Desvenlafaxine Succinate 50 mg PO DAILY 03/15/17 03/15/17 History [Desvenlafaxine ER] Dexmethylphenidate HCl [Focalin] 10 mg PO BID 03/15/17 03/15/17 History Lisinopril TAB* [Prinivil TAB*] 5 mg PO DAILY 03/15/17 03/15/17 History buPROPion SR TAB* [Wellbutrin SR 150 mg PO DAILY 03/15/17 03/15/17 History TAB*] clonazePAM TAB(*) [KlonoPIN TAB(*)] 0.5 mg PO BID 03/15/17 03/15/17 History Allergies: Allergies Allergy/AdvReac Type Severity Reaction Status Date / Time No Known Allergies Allergy Verified 03/15/17 13:34 Objective - Vital Signs Vital Signs: Vital Signs 03/16/17 03/16/17 03/16/17 07:30 08:00 08:01 Temperature 97.8 F Pulse Rate 80 72 78 Respiratory 15 14 14 Rate Blood Pressure 130/80 107/76 (mmHg) O2 Sat by Pulse 98 97 97 Oximetry 03/16/17 03/16/17 03/16/17 08:13 08:30 09:00 Temperature Pulse Rate 89 89 81 Respiratory 15 16 14 Rate Blood Pressure 122/87 121/82 (mmHg) O2 Sat by Pulse 98 99 98 Oximetry 03/16/17 03/16/17 03/16/17 09:01 09:30 10:00 Temperature Pulse Rate 86 71 75 Respiratory 13 16 15 Rate Blood Pressure 117/81 147/89 (mmHg) O2 Sat by Pulse 96 98 94 Oximetry 03/16/17 03/16/17 03/16/17 10:01 10:31 10:38 Temperature Pulse Rate 77 80 90 Respiratory 16 4 27 Rate Blood Pressure 110/91 (mmHg) O2 Sat by Pulse 94 99 99 Oximetry 03/16/17 03/16/17 03/16/17 10:40 10:44 10:46 Temperature Pulse Rate 98 96 72 Respiratory 18 24 20 Rate Blood Pressure 127/82 134/94 107/82 (mmHg) O2 Sat by Pulse 99 99 97 Oximetry 03/16/17 03/16/17 03/16/17 10:48 10:50 10:52 Temperature Pulse Rate 89 75 80 Respiratory 15 22 10 Rate Blood Pressure 138/99 115/81 121/86 (mmHg) O2 Sat by Pulse 96 94 96 Oximetry 03/16/17 03/16/17 03/16/17 10:55 10:56 10:59 Temperature Pulse Rate 80 88 74 Respiratory 16 19 20 Rate Blood Pressure 111/83 122/89 135/85 (mmHg) O2 Sat by Pulse 98 95 96 Oximetry 03/16/17 03/16/17 03/16/17 11:00 11:01 11:02 Temperature Pulse Rate 61 62 Respiratory 12 14 13 Rate Blood Pressure 107/75 108/73 (mmHg) O2 Sat by Pulse 93 89 Oximetry 03/16/17 03/16/17 03/16/17 11:04 11:06 11:08 Temperature Pulse Rate 62 61 60 Respiratory 10 9 10 Rate Blood Pressure 92/75 108/68 106/72 (mmHg) O2 Sat by Pulse 86 91 92 Oximetry 03/16/17 03/16/17 03/16/17 11:10 11:12 11:14 Temperature Pulse Rate 57 56 58 Respiratory 7 9 10 Rate Blood Pressure 98/73 100/68 95/70 (mmHg) O2 Sat by Pulse 98 98 98 Oximetry 03/16/17 03/16/17 03/16/17 11:16 11:20 11:25 Temperature Pulse Rate 58 57 58 Respiratory 9 10 13 Rate Blood Pressure 96/67 100/67 99/64 (mmHg) O2 Sat by Pulse 98 98 98 Oximetry 03/16/17 03/16/17 03/16/17 11:30 11:37 11:45 Temperature Pulse Rate 57 58 Respiratory 11 12 Rate Blood Pressure 98/69 140/66 95/65 (mmHg) O2 Sat by Pulse 97 98 Oximetry 03/16/17 03/16/17 03/16/17 12:00 12:01 12:15 Temperature 97.3 F Pulse Rate 59 58 52 Respiratory 13 13 12 Rate Blood Pressure 102/66 92/58 (mmHg) O2 Sat by Pulse 98 97 100 Oximetry 03/16/17 03/16/17 03/16/17 12:30 12:45 12:59 Temperature Pulse Rate 55 54 54 Respiratory 13 14 15 Rate Blood Pressure 99/66 99/76 (mmHg) O2 Sat by Pulse 92 95 99 Oximetry 03/16/17 03/16/17 03/16/17 13:00 13:01 13:02 Temperature Pulse Rate 55 54 Respiratory 14 11 14 Rate Blood Pressure 114/75 (mmHg) O2 Sat by Pulse 99 99 Oximetry 03/16/17 03/16/17 03/16/17 13:15 13:30 13:45 Temperature Pulse Rate 54 54 53 Respiratory 14 14 14 Rate Blood Pressure 113/76 111/76 114/78 (mmHg) O2 Sat by Pulse 100 100 100 Oximetry 03/16/17 03/16/17 03/16/17 14:00 14:01 14:09 Temperature Pulse Rate 66 65 67 Respiratory 15 19 16 Rate Blood Pressure 128/81 (mmHg) O2 Sat by Pulse 98 97 97 Oximetry 03/16/17 03/16/17 03/16/17 14:30 15:00 15:01 Temperature Pulse Rate 69 72 69 Respiratory 17 17 14 Rate Blood Pressure 107/69 110/70 (mmHg) O2 Sat by Pulse 97 96 97 Oximetry 03/16/17 03/16/17 03/16/17 15:30 15:33 15:40 Temperature 97.3 F Pulse Rate 65 71 Respiratory 15 15 Rate Blood Pressure 108/72 (mmHg) O2 Sat by Pulse 96 97 Oximetry 03/16/17 03/16/17 03/16/17 15:44 15:55 16:00 Temperature Pulse Rate 83 70 Respiratory 17 25 18 Rate Blood Pressure 125/75 (mmHg) O2 Sat by Pulse 98 96 Oximetry 03/16/17 03/16/17 03/16/17 16:01 16:30 17:00 Temperature Pulse Rate 67 70 71 Respiratory 17 18 18 Rate Blood Pressure 118/75 122/71 (mmHg) O2 Sat by Pulse 97 96 97 Oximetry 03/16/17 03/16/17 03/16/17 17:01 17:20 17:30 Temperature Pulse Rate 71 68 69 Respiratory 12 14 14 Rate Blood Pressure 120/72 (mmHg) O2 Sat by Pulse 96 95 95 Oximetry 03/16/17 03/16/17 03/16/17 18:00 18:01 18:29 Temperature Pulse Rate 69 70 70 Respiratory 16 13 21 Rate Blood Pressure 116/76 (mmHg) O2 Sat by Pulse 96 96 98 Oximetry 03/16/17 03/16/17 03/16/17 18:30 18:52 18:53 Temperature Pulse Rate 65 67 Respiratory 19 21 15 Rate Blood Pressure 131/79 (mmHg) O2 Sat by Pulse 98 98 Oximetry 03/16/17 03/16/17 03/16/17 19:00 19:01 19:03 Temperature Pulse Rate 65 73 72 Respiratory 14 24 23 Rate Blood Pressure 109/65 (mmHg) O2 Sat by Pulse 95 97 97 Oximetry 03/16/17 03/16/17 03/16/17 19:31 20:00 20:01 Temperature 99 F Pulse Rate 71 66 67 Respiratory 17 19 21 Rate Blood Pressure 122/72 115/75 (mmHg) O2 Sat by Pulse 98 95 96 Oximetry 03/16/17 03/16/17 03/16/17 20:04 20:30 20:59 Temperature Pulse Rate 71 65 59 Respiratory 20 20 14 Rate Blood Pressure 119/73 (mmHg) O2 Sat by Pulse 96 96 99 Oximetry 03/16/17 03/16/17 03/16/17 21:00 21:01 21:30 Temperature Pulse Rate 57 59 60 Respiratory 13 16 22 Rate Blood Pressure 126/79 128/85 (mmHg) O2 Sat by Pulse 98 99 99 Oximetry 03/16/17 03/16/17 03/16/17 22:00 22:01 22:30 Temperature Pulse Rate 59 61 57 Respiratory 17 23 Rate Blood Pressure 126/79 114/82 (mmHg) O2 Sat by Pulse 99 99 96 Oximetry 03/16/17 03/16/17 03/16/17 22:51 23:00 23:01 Temperature Pulse Rate 54 56 61 Respiratory 17 Rate Blood Pressure 126/80 (mmHg) O2 Sat by Pulse 100 100 100 Oximetry 03/16/17 03/16/17 03/16/17 23:30 23:56 23:57 Temperature Pulse Rate 58 67 68 Respiratory Rate Blood Pressure 123/79 (mmHg) O2 Sat by Pulse 100 98 98 Oximetry 03/17/17 03/17/17 03/17/17 00:00 00:01 00:30 Temperature 98.1 F Pulse Rate 60 60 52 Respiratory 14 12 Rate Blood Pressure 145/84 113/76 (mmHg) O2 Sat by Pulse 99 99 100 Oximetry 03/17/17 03/17/17 03/17/17 01:00 01:01 01:30 Temperature Pulse Rate 53 52 57 Respiratory 17 16 13 Rate Blood Pressure 115/83 114/72 (mmHg) O2 Sat by Pulse 100 100 98 Oximetry 03/17/17 03/17/17 03/17/17 02:00 02:01 02:30 Temperature Pulse Rate 54 52 54 Respiratory 14 20 10 Rate Blood Pressure 111/78 106/77 (mmHg) O2 Sat by Pulse 100 100 99 Oximetry 03/17/17 03/17/17 03/17/17 03:00 03:01 03:30 Temperature Pulse Rate 54 59 56 Respiratory 14 17 15 Rate Blood Pressure 137/84 113/71 (mmHg) O2 Sat by Pulse 100 99 98 Oximetry 03/17/17 03/17/17 03/17/17 04:00 04:01 04:30 Temperature 98.7 F Pulse Rate 54 56 56 Respiratory 13 15 15 Rate Blood Pressure 104/74 119/80 (mmHg) O2 Sat by Pulse 99 98 98 Oximetry 03/17/17 03/17/17 03/17/17 05:00 05:01 05:30 Temperature Pulse Rate 55 56 56 Respiratory 0 6 16 Rate Blood Pressure 104/75 104/71 (mmHg) O2 Sat by Pulse 96 95 94 Oximetry 03/17/17 03/17/17 03/17/17 06:00 06:01 06:30 Temperature Pulse Rate 56 55 55 Respiratory 15 15 13 Rate Blood Pressure 112/73 110/75 (mmHg) O2 Sat by Pulse 94 94 96 Oximetry 03/17/17 03/17/17 07:00 07:01 Temperature Pulse Rate 53 56 Respiratory 13 10 Rate Blood Pressure 108/71 (mmHg) O2 Sat by Pulse 96 95 Oximetry - Intake and Output Intake and Output: Intake & Output 03/14/17 03/15/17 03/16/17 03/17/17 11:59 11:59 11:59 11:59 Intake Total 877 1960 Output Total 950 Balance -73 1960 Weight 241 lb 10.026 oz 244 lb 7.882 oz Intake: IV Fluids 1000 NS (0.9%) 1000 Medicated IV 473 GEN - Diltiazem/Cardizem 81 Heparin 392 Heparin 44 Oral 360 960 Output: Urine 950 ADLs: Meal Record Start: 03/15/17 19: 30 Freq: ,,18 Status: Active Protocol: Created 03/15/17 19:30 System (Rec: 03/15/17 19:30 System [id number]) Document 03/16/17 09:00 [id number] (Rec: 03/16/17 12:58 [id number] [id number]) Document 03/16/17 13:00 (Rec: 03/16/17 14:09 [id number]) Document 03/16/17 18:00 [id number] (Rec: 03/16/17 18:29 [id number] ICU-M21) Intake and Output Start: 03/15/17 14: 43 Freq: Status: Active Protocol: Created 03/15/17 14:43 System (Rec: 03/15/17 14:43 System [id number]) Intake and Output Start: 03/15/17 19: 30 Freq: 06,14,22 Status: Active Protocol: Created 03/15/17 19:30 System (Rec: 03/15/17 19:30 System [id number]) Document 03/15/17 21:30 [id number] (Rec: 03/15/17 21:30 [id number] ICU-C12) Document 03/16/17 05:55 [id number] (Rec: 03/16/17 05:55 [id number] ICU-M21) Document 03/16/17 08:20 [id number] (Rec: 03/16/17 08:20 ICU-M21) Document 03/16/17 14:00 [id number] (Rec: 03/16/17 15:10 [id number] ICU-M21) Document 03/17/17 06:00 [id number] (Rec: 03/17/17 06:13 [id number] ICU-C25) - Physical Exam General: No Cyanosis, No Anemia, No Jaundice, No Clubbing Lungs and Chest: Yes: Chest Expansion Full, Chest Expansion Symetrica, Percussion Note Resonant, Vessicular Breath Sounds. No: Crackles, Wheezes, Respiratory Distress Heart Rate and Rhythm: Regular JVP: Not Elevated Additional Cardiovascular: Yes: Normal Heart Sounds. No: Heart Murmur, Carotid Bruits, Pedal Edema Abdominal Exam: Yes: Soft, Bowel Sounds Present. No: Distention, Hepatomegaly, Abdominal Tenderness Results - Results Lab Results: Laboratory Results - last 24 hr 03/16/17 03/16/17 03/16/17 05:10 15:10 18:40 WBC 5.5 RBC 4.51 Hgb 13.6 L Hct 40 L MCV 89 MCH 30 MCHC 34 RDW 13 Plt Count 211 MPV 7 L Neut % (Auto) 66.1 Lymph % (Auto) 24.3 L [place] % (Auto) 8.5 Eos % (Auto) 0.7 Baso % (Auto) 0.4 Absolute Neuts (auto) 3.7 Absolute Lymphs (auto) 1.3 Absolute Monos (auto) 0.5 Absolute Eos (auto) 0 Absolute Basos (auto) 0 Absolute Nucleated RBC 0 Nucleated RBC % 0 APTT 30.2 Sodium Potassium Chloride Carbon Dioxide Anion Gap BUN Creatinine Est GFR ( Amer) Est GFR (Non-Af Amer) BUN/Creatinine Ratio Glucose Calcium Hepatitis C Antibody Nonreactive 03/17/17 03/17/17 06:10 06:10 WBC 4.9 RBC 4.62 Hgb 13.9 L Hct 41 L MCV 89 MCH 30 MCHC 34 RDW 14 Plt Count 202 MPV 7 L Neut % (Auto) 63.9 Lymph % (Auto) 25.0 [place] % (Auto) 9.8 H Eos % (Auto) 1.1 Baso % (Auto) 0.2 Absolute Neuts (auto) 3.1 Absolute Lymphs (auto) 1.2 Absolute Monos (auto) 0.5 Absolute Eos (auto) 0.1 Absolute Basos (auto) 0 Absolute Nucleated RBC 0.01 Nucleated RBC % 0.1 APTT Sodium 137 Potassium 4.0 Chloride 106 Carbon Dioxide 26 Anion Gap 5 BUN 15 Creatinine 1.03 Est GFR ( Amer) 93.2 Est GFR (Non-Af Amer) 72.5 BUN/Creatinine Ratio 14.6 Glucose 121 H Calcium 9.0 Hepatitis C Antibody Other Results/Reports: Conclusions Transesophageal echocardiogram: Global left ventricular wall motion and contractility are within normal limits. The estimated ejection fraction is 55-60%. The assessment of diastolic function is non-diagnostic. The left atrium is mildly dilated. No thrombus is visualized within the left atrium. There is no thrombus visualized in the left atrial appendage. Interatrial septum appears intact without evidence of shunting. There is a trace of aortic regurgitation. There is mild mitral regurgitation. There are multiple regurgitant jets. There is trace tricuspid regurgitation. There is a trace pulmonic regurgitation. There is plaque visualized in the transverse aorta. There is mild atherosclerotic plaque in the visualized segments of the aorta. Assessment - Problem List Assessment: Patient Problems Atrial fibrillation (Acute) ADHD (Chronic) Anxiety (Chronic) 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) Essential hypertension (Chronic) Hypercholesteremia (Chronic) Plan: He has tolerated DC cardioversion. Today we will complete a NM stress test to rule out occult CAD. * Positive stress test: referral to leadite worker for coronary angiogram/stenting * Negative stress test: discharge home * equivocal stress test: cardiology consultation I explained the above the patient and answered questions. Anticoagulation: I discussed the need for at least 1 month and possibly an event monitor to determine if he should be on permanent anticoagulation for occult paroxysmal atrial fibrillation.
[2017-03-17] MEDS: PTO:Desvenlafaxine (NF) 50 MG TAB PO SCH (08:22)
[2017-03-17] MEDS: buPROPion SR TAB.SR* 150 MG PO SCH (08:23)
[2017-03-17] MEDS: Diltiazem TAB* 30 MG PO SCH (08:23)
[2017-03-17] MEDS: clonazePAM TAB(*) 0.5 MG PO SCH (08:24)
[2017-03-17] MEDS: DEXMETHYLPHENIDATE HCL 10 MG PO SCH (08:25)
[2017-03-17 09:24] LABS: Magnesium 2.2 mg/dL (1.9-2.7)
--- NOTE | 2017-03-17 11:07 | PN ---
Subjective Date of Service: 03/17/17 - CC: fluttering/afib Interval History: The patient feels well post cardioversion. No new c/o. Medications Active Medications: Atorvastatin Calcium (Lipitor*) 40 mg PO 2100 [facility] Last Admin: 03/16/17 20:51 Dose: 40 mg Bupropion HCl (Wellbutrin Sr Tab*) 150 mg PO DAILY [facility] Last Admin: 03/17/17 08:23 Dose: 150 mg Clonazepam (Klonopin Tab(*)) 0.5 mg PO BID [facility] Last Admin: 03/17/17 08:24 Dose: Not Given Desvenlafaxine Succinate (Pristiq (Nf)) 50 mg PO DAILY [facility] Last Admin: 03/17/17 08:22 Dose: 50 mg Diltiazem HCl (Cardizem Tab*) 30 mg PO BID [facility] Last Admin: 03/17/17 08:23 Dose: 30 mg Lisinopril (Prinivil Tab*) 5 mg PO 2100 [facility] Last Admin: 03/16/17 20:53 Dose: 5 mg Non-Formulary Medication (Dexmethylphenidate Hcl [Focalin]) 10 mg PO BID [facility] Last Admin: 03/17/17 08:25 Dose: Not Given Rivaroxaban (Xarelto (*)) 20 mg PO 1700 [facility] Last Admin: 03/16/17 18:29 Dose: 20 mg Objective Vital Signs: Temp Pulse Resp BP Pulse Ox 98.1 F 59 18 113/79 99 03/17/17 07:48 03/17/17 09:01 03/17/17 09:00 03/17/17 09:00 03/17/17 09:01 Oxygen Devices in Use Now: None Appearance: tall fit appearing somewhat older gentleman in no distress. Eyes: No Scleral Icterus, PERRLA Ears/Nose/Mouth/Throat: Clear Oropharnyx, Mucous Membranes Moist Neck: NL Appearance and Movements; NL JVP Respiratory: Symmetrical Chest Expansion and Respiratory Effort, Clear to Auscultation Cardiovascular: NL Sounds; No Murmurs; No JVD, RRR Abdominal: NL Sounds; No Tenderness; No Distention Extremities: No Edema Skin: No Rash or Ulcers Neurological: Alert and Oriented x 3, NL Sensation, NL Gait, NL Muscle Strength and Tone Lines/Tubes/Other Access: Clean, Dry and Intact Peripheral IV Laboratory Results: 03/17/17 06:10 03/17/17 06:10 APTT 30.2 seconds (26.0-36.3) 03/16/17 15:10 Total Bilirubin 0.30 mg/dL (0.2-1.0) 03/15/17 14:10 AST 24 U/L (13-39) 03/15/17 14:10 ALT 27 U/L (7-52) 03/15/17 14:10 Alkaline Phosphatase 100 U/L (34-104) 03/15/17 14:10 Total Protein 7.1 g/dL (6.4-8.9) 03/15/17 14:10 Albumin 4.4 g/dL (3.2-5.2) 03/15/17 14:10 Globulin 2.7 g/dL (2-4) 03/15/17 14:10 Albumin/Globulin Ratio 1.6 (1-3) 03/15/17 14:10 TSH 1.30 mcIU/mL (0.34-5.60) 03/15/17 14:10 03/15/17 20:50 Troponin I 0.01 Diagnostic Imaging: Exercise nuclear study: exercise portion c/w deconditioning, no ischemia by ECG criteria, nuclear data reviewed, attenuation from diaphragm seen, resolves with attenduation correction. EF 60%. EKG Data: NSR, normal ST's Assessment/Plan 67 yo male with afib, RVR in setting of YAMILET, alcohol intake, age. S/p LACIE guided CV yesterday, addition of short acting diltiazem and maintaining sinus rhythm. PAF: -Lifestyle changes wrt EtOH and ensuring CPAP optimal discussed. -Option of long acting diltiazem, low dose metoprolol or antiarrhythmic medication (As this is his first afib, reasonable to try lifestye first, delay antiarrhythmics other than CCB or BB for now). -Discharge on anticoagulation for CHADs of 2. CAD risks -Nuclear portion of stress test not yet read by radiology, but c/w normal EF, no ischemia and attenuation on stress from diaphragm. -Needs to exercise 3 hours weekly, discussed with the patient. -BP well controlled. -Outpatient f/u with Dr. Kumar.
--- NOTE | 2017-03-17 12:17 | RAD ---
Edited for charges. HISTORY: Cardioversion, diabetes, hypertension, hyperlipidemia COMPARISONS: None TECHNIQUE: A 1 day stress/rest myocardial perfusion study was performed, with exercise stress. The exercise portion was performed using the Toño protocol, for a total METs of 11.9. The stress portion was monitored by Dr. Le. Gated SPECT imaging was performed, with CT-based attenuation correction DOSE: Stress: Technetium 99m tetrofosmin, 25.02 millicuries, injected at 10:40 AM on March 17, 2017 Rest: Technetium 99m tetrofosmin, 10.5 millicuries, injected at 8:22 AM on March 17, 2017 Pharmacologic agent: None FINDINGS: CARDIAC MONITORING: Peak heart rate of 139 bpm, 90% of predicted EF: 63% TID: 0.9 MOTION: Normal motion, with normal wall thickening. PERFUSION: There are no fixed or reversible perfusion defects. OTHER: None IMPRESSION: NO FIXED OR REVERSIBLE PERFUSION DEFECTS ASSESSMENT: LOW RISK. Based on imaging criteria from ACC/AHA 2002. Guideline Update for the Management of Patient's with Chronic Stable Angina, table 23. Noninvasive Risk Stratification. CPT II Codes: 5665B2H MTDD
[2017-03-17 15:10] VITALS: BP 128/68
== END 2017-03-17 15:00 | disposition home or self-care (01) | DRG 201 ==
LOC: ED 14:30 → ICU 18:32
PROVIDERS: ADMIT Internal Medicine; ATTEND Internal Medicine
PROC: 5A09457 Assistance with Respiratory Ventilation, 24-96 Consecutive Hours, Continuous Positive Airway Pressure (ICD-10-PCS; 2017-03-15)
PROC: B24BZZ4 Ultrasonography of Heart with Aorta, Transesophageal (ICD-10-PCS; 2017-03-16)
PROC: 5A2204Z Restoration of Cardiac Rhythm, Single (ICD-10-PCS; principal; 2017-03-16 09:30)
DX: I48.0 Paroxysmal atrial fibrillation (principal); E11.9 Type 2 diabetes mellitus without complications; I10 Essential (primary) hypertension; F32.9 Major depressive disorder, single episode, unspecified; F90.9 Attention-deficit hyperactivity disorder, unspecified type; F41.9 Anxiety disorder, unspecified; E78.00 Pure hypercholesterolemia, unspecified; G47.33 Obstructive sleep apnea (adult) (pediatric); Z72.89 Other problems related to lifestyle; Z87.891 Personal history of nicotine dependence; Z82.49 Family history of ischemic heart disease and other diseases of the circulatory system; Z80.0 Family history of malignant neoplasm of digestive organs; Z83.3 Family history of diabetes mellitus
CPT/HCPCS: 36415; 71010; 78452; 80048; 80053; 83605; 83735; 84439; 84443; 84484; 84520; 85025; 85730; 86803; 87641; 92960; 93005; 93017; 93312; 93325; 94660; 99156; 99213; A9270-GY; A9502; G0463; J0461; J1644; J2250; J2310; J3010

== ENCOUNTER 2017-08-08 05:47 | Emergency (ER) | payer BC ==
[2017-08-08] MEDS ORDERED: NS 0.9% 1000 ML* 1,000 ML IV ONE (06:01)
[2017-08-08] MEDS ORDERED: Ondansetron INJ* 2 MG/ML VIAL IV ONE (06:01)
--- NOTE | 2017-08-08 06:18 | ED ---
Nausea/Vomiting/Diarrhea HPI - HPI Summary HPI Summary: Patient is a 67-year-old male who presents emergency department for nausea, vomiting and abdominal cramping 24 hours. Patient denies fever, chills, chest pain, shortness of breath, URI symptoms. Denies passing blood in stool or emesis. Past medical history depression and hypertension. Patient states that he believes he obtained food poisoning from frozen meat from [place] from a friend. Patient states his who also ate the meat had diarrhea as well. Symptoms are moderate in severity. No current modifying factors. - History of Current Complaint Chief Complaint: EDNauseaVomitDiarrh Stated Complaint: V/D Time Seen by Provider: 08/08/17 05:58 Hx Obtained From: Patient Pain Intensity: 5 - Allergies/Home Medications Allergies/Adverse Reactions: Allergies Allergy/AdvReac Type Severity Reaction Status Date / Time No Known Allergies Allergy Verified 08/08/17 05:51 PMH/Surg Hx/FS Hx/Imm Hx Endocrine/Hematology History: Reports: Hx Diabetes - pre diabetic Denies: Hx Anemia Cardiovascular History: Reports: Hx Hypercholesterolemia, Hx Hypertension Denies: Hx Angina, Hx Coronary Artery Disease, Hx Myocardial Infarction, Hx Valvular Heart Disease GI History: Denies: Hx Jaundice Sensory History: Reports: Hx Contacts or Glasses Denies: Hx Deafness, Hx Hearing Aid Opthamlomology History: Reports: Hx Contacts or Glasses Psychiatric History: Reports: Hx Anxiety - on klonopin, Hx Attention Deficit Hyperactivity Disorder - on focalin, Hx Depression Infectious Disease History: No Infectious Disease History: Reports: Traveled Outside the in Last 30 Days - [place] - Family History Known Family History: Positive: Cardiac Disease, Hypertension - Social History Occupation: Employed Full-time Lives: With Family Alcohol Use: Weekly Alcohol Amount: 3-4 glasses of wine on the weekends Substance Use Type: Reports: None Substance Use Comment - Amount & Last Used: 2 coffees and 2-3 soda Smoking Status (MU): Never Smoked Tobacco Review of Systems Constitutional: Negative Negative: Fever, Chills Eyes: Negative ENT: Negative Cardiovascular: Negative Negative: Palpitations, Chest Pain Respiratory: Negative Negative: Shortness Of Breath, Cough Positive: Abdominal Pain, Vomiting, Diarrhea, Nausea Genitourinary: Negative Neurological: Negative All Other Systems Reviewed And Are Negative: Yes Physical Exam Triage Information Reviewed: Yes Vital Signs On Initial Exam: Initial Vitals Temp Pulse Resp BP Pulse Ox 99.0 F 79 16 126/44 98 08/08/17 05:48 08/08/17 05:48 08/08/17 05:48 08/08/17 05:48 08/08/17 05:48 Vital Signs Reviewed: Yes Appearance: Positive: Ill-Appearing - Patient lying in bed, appears uncomfortable but nontoxic. Head/Face: Positive: Normal Head/Face Inspection Eyes: Positive: Normal Respiratory/Lung Sounds: Positive: Breath Sounds Present Cardiovascular: Positive: Normal, RRR Abdomen Description: Positive: Nontender, Soft Bowel Sounds: Positive: Hyperactive Musculoskeletal: Positive: Normal Neurological: Positive: Normal, CN Intact II-III Psychiatric: Positive: Normal Diagnostics - Vital Signs Vital Signs Temp Pulse Resp BP Pulse Ox 08/08/17 05:48 99.0 F 79 16 126/44 98 - Laboratory Result Diagrams: 08/08/17 06:15 08/08/17 06:15 Lab Statement: Any lab studies that have been ordered have been reviewed, and results considered in the medical decision making process. Naus/Vom/Diarrhea Course/Dx - Course Course Of Treatment: Patient presenting to the ER for suspected food poisoning from edition of meat yesterday. He is afebrile with stable vital signs. He has benign abdominal exam. Will obtain basic labs, give IV fluids and Zofran. Stool cultures ordered. CBC shows mild hemoconcentration but is otherwise unremarkable. CMP is unremarkable. On reexamination patient is sleeping comfortably. He has been able to tolerate water in the ER. He has had no vomiting or diarrhea in the ER. He has benign abdominal exam. Suspect gastroenteritis. Prescription for Zofran given. Patient advised clear liquid diet 24 hours. Increase fluids. To follow-up with PCP if symptoms continue or return to the ER for increased abdominal pain or uncontrolled vomiting. Patient understands and agrees with plan. - Differential Dx/Diagnosis Differential Diagnoses - Male: Appendicitis, Bowel Obstruction, Diverticulitis, Pancreatitis, Gastroenteritis (Viral), Gastroenteritis (Bacterial), Vomiting, Diarrhea, Colitis Condition At Discharge: Good Discharge - Sign-Out/Discharge Documenting (check all that apply): Discharge/Admit/Transfer - Discharge Plan Condition: Good Disposition: HOME Prescriptions: Ondansetron TAB* [Zofran 4 MG Tab*] 4 mg PO Q6H PRN #12 tab PRN Reason: Nausea Patient Education Materials: Gastroenteritis (ED) Referrals: Abhi Berry MD [Primary Care Provider] - Additional Instructions: Schedule follow up with PCP Increase fluids Clear liquid diet x 24 hours Return to ER for increased abdominal pain, uncontrollable vomiting or if concerned - Billing Disposition and Condition Condition: GOOD Disposition: HOME
[2017-08-08 06:29] LABS: ABS Basophils 0 10^3/ul (0-0.2); ABS Eosinophils 0 10^3/ul (0-0.6); ABS Lymphocytes 0.4 10^3/ul (1.0-4.8); ABS Monocytes 0.6 10^3/ul (0-0.8); ABS Neutrophils 5.5 10^3/ul (1.5-7.7); ABS Nucleated RBC 0 10^3/ul; Eosinophil % 0.2 % (0-6); Hematocrit 37 % (42-52); Hemoglobin 13.4 g/dl (14.0-18.0); Lymphocyte % 6.7 % (25-47); Mean Corpuscular HGB Conc 36 g/dl (31-36); Mean Corpuscular Hemoglobin 31 pg (27-31); Mean Corpuscular Volume 87 fL (80-94); Mean Platelet Volume 7.1 um3 (7.4-10.4); Nucleated Red Blood Cells % 0; Platelet Count 158 10^3/ul (150-450); Red Blood Count 4.29 10^6/ul (4.0-5.4); Red Cell Distribution Width 13 % (10.5-15); White Blood Count 6.5 10^3/ul (3.5-10.8)
[2017-08-08 06:45] LABS: EGFR Non-African American 68.6 (>60)
[2017-08-08 07:51] VITALS: BP 106/73
== END 2017-08-08 08:26 | disposition home or self-care (01) ==
LOC: ED 05:47
DX: R11.2 Nausea with vomiting, unspecified (principal); R10.9 Unspecified abdominal pain
CPT/HCPCS: 36415; 80053; 83690; 83735; 85025; 96361; 96374; 99282; J2405

== ENCOUNTER → 2018-09-09 13:46 | Emergency (ER) | payer BC ==
--- NOTE | 2018-09-09 14:47 | ED ---
Throat Pain/Nasal Congestion - HPI Summary HPI Summary: Pt here w/ "floaters" and a flash in the Rt eye that was noticed while moving his head this morning when mowing the lawn. Has had floaters before but this is worse and has never had the flash in his eye. Can almost reliably reproduce sx by moving his head quickly. Denies pain, diploplia, visual loss, JONES, CP, neck pain, fever, chills, SOB, n/t/w. Also denies valsalva as well as injury prior to sx. TRaveling to [place] tomorrow - would like advice. Pt of Dr. Anderson. BP typically 120's (elevated today) Meds: lisinopril, statin, focalin - History of Current Complaint Chief Complaint: EDEyeProblem Time Seen by Provider: 09/09/18 14:29 Hx Obtained From: Patient - Allergies/Home Medications Allergies/Adverse Reactions: Allergies Allergy/AdvReac Type Severity Reaction Status Date / Time No Known Allergies Allergy Verified 09/09/18 13:50 PMH/Surg Hx/FS Hx/Imm Hx Previously Healthy: Yes Endocrine/Hematology History: Reports: Hx Diabetes - pre diabetic Denies: Hx Anemia Cardiovascular History: Reports: Hx Hypercholesterolemia - on statin, Hx Hypertension - on med Denies: Hx Angina, Hx Coronary Artery Disease, Hx Myocardial Infarction, Hx Valvular Heart Disease GI History: Denies: Hx Jaundice Sensory History: Reports: Hx Contacts or Glasses Denies: Hx Deafness, Hx Hearing Aid Opthamlomology History: Reports: Hx Contacts or Glasses Psychiatric History: Reports: Hx Anxiety - on klonopin, Hx Attention Deficit Hyperactivity Disorder - on focalin, Hx Depression Infectious Disease History: No Infectious Disease History: Denies: Traveled Outside the [place] in Last 30 Days - Family History Known Family History: Positive: Cardiac Disease, Hypertension - Social History Alcohol Use: Weekly Alcohol Amount: 3-4 glasses of wine on the weekends Substance Use Type: Reports: None Substance Use Comment - Amount & Last Used: 2 coffees and 2-3 soda Hx Tobacco Use: Yes - not currently Smoking Status (MU): Former Smoker Review of Systems Constitutional: Negative Eyes: Other - "floaters" Negative: Photophobia, Blurred Vision, Diplopia, Drainage, Erythema ENT: Negative Cardiovascular: Negative Respiratory: Negative Gastrointestinal: Negative Positive: no symptoms reported Skin: Negative Neurological: Negative Negative: Headache, Weakness, Paresthesia, Numbness, Syncope, Slurred Speech Positive: Anxious All Other Systems Reviewed And Are Negative: Yes Physical Exam - Summary Physical Exam Summary: no stroke-like sx funduscopic exam limited but normal here Triage Information Reviewed: Yes Vital Signs On Initial Exam: Initial Vitals Temp Pulse Resp BP Pulse Ox 97.7 F 80 16 143/92 96 09/09/18 13:48 09/09/18 13:48 09/09/18 13:48 09/09/18 13:48 09/09/18 13:48 Vital Signs Reviewed: Yes Appearance: Positive: Well-Appearing, No Pain Distress - mild anxiety mostly about sx and pending trip - wants to know if safe to travel, Well-Nourished Skin: Positive: Warm, Skin Color Reflects Adequate Perfusion, Dry - no lesions over affected area Head/Face: Positive: Normal Head/Face Inspection Eyes: Positive: Normal, EOMI, SON, Conjunctiva Clear, Other: - Limited funduscopic exam but some vasculature observed and appears healthy - no rose hemorrhage or floaters identified - optic disc/macula/fovea not ID'd. Negative : Conjunctiva Inflammed, Discharge ENT: Positive: Normal ENT inspection, Hearing grossly normal, Pharynx normal, TMs normal. Negative: Nasal congestion, Nasal drainage Neck: Positive: Supple, Nontender, No Lymphadenopathy Respiratory/Lung Sounds: Positive: Breath Sounds Present Cardiovascular: Positive: Normal Musculoskeletal: Positive: Normal, Strength/ROM Intact Neurological: Positive: Normal, Sensory/Motor Intact, Alert, Oriented to Person Place, Time, CN Intact II-III, Normal Gait, Facial Symmetry, Speech Normal Psychiatric: Positive: Normal - [place] Coma Scale Best Eye Response: 4 - Spontaneous Best Motor Response: 6 - Obeys Commands Best Verbal Response: 5 - Oriented Coma Scale Total: 15 Diagnostics - Vital Signs Vital Signs Temp Pulse Resp BP Pulse Ox 09/09/18 13:48 97.7 F 80 16 143/92 96 - Laboratory Lab Statement: Any lab studies that have been ordered have been reviewed, and results considered in the medical decision making process. EENT Course/Dx - Course Course Of Treatment: Pt may be having retinal injury - does not appear to be having migraine/CVA. Spoke w/ Dr. Carty (relocation associate) at Dr. Mitchell's office who reports she will see the pt at the [facility] office as soon as he can get there today. Pt aware of plan and agrees to go directly to her office. Discussed danger s/sx of when to return to the ED - pt aware and agrees. - Diagnoses Provider Diagnoses: Floaters in visual field Discharge - Sign-Out/Discharge Documenting (check all that apply): Patient Departure Patient Received Moderate/Deep Sedation with Procedure: No - Discharge Plan Condition: Stable Disposition: HOME Patient Education Materials: Visual Floaters (ED) Referrals: Reese Mitchell MD [Medical Doctor] - Additional Instructions: You may have a retinal injury - it is advised that you go directly to Dr. Mitchell' s office for consult. - Billing Disposition and Condition Condition: STABLE Disposition: Home
[2018-09-09 16:18] VITALS: BP 0/0
== END | disposition home or self-care (01) ==
LOC: ED 13:46
DX: H43.391 Other vitreous opacities, right eye (principal); I10 Essential (primary) hypertension; R73.03 Prediabetes; E78.00 Pure hypercholesterolemia, unspecified; F41.9 Anxiety disorder, unspecified; F90.9 Attention-deficit hyperactivity disorder, unspecified type; F32.9 Major depressive disorder, single episode, unspecified; Z79.899 Other long term (current) drug therapy; Z87.891 Personal history of nicotine dependence
CPT/HCPCS: 99282